=== PATIENT | female | born 1980 ===

== ENCOUNTER 2016-09-11 15:18 | Emergency (ER) | payer OTHER ==
[~2016-09-11] VITALS: Ht 162.6 cm; Wt 68.0 kg
[~2016-09-11 15:18] MED LIST: CETIRIZINE HCL10 M2 PO; HYDROXYZINE HCL25 M2 PO; IBUPROFEN800 M1 PO; MEDROL4 M2 PO; PREDNISONE5 M1 PO; TRIAMCINOLONE A15 G3 TOP; VISTARIL50 M1 PO
--- NOTE | 2016-09-11 16:38 | ED SKIN/ALLERGY COMPLAINT ---
History of Present Illness General Chief Complaint: Allergy Symptoms Stated Complaint: ?ALLERGIC RXN, EYES SWOLLEN,RASH X 1WK SAW MD Source: patient, family, old records Exam Limitations: no limitations Vital Signs & Intake/Output Vital Signs & Intake/Output Vital Signs Date Time Temp Pulse Resp B/P Pulse O2 O2 Flow FiO2 Ox Delivery Rate 09/11 1738 58 16 103/59 98 Room Air 09/11 1731 Room Air 09/11 1522 98.3 69 20 107/66 98 Room Air Allergies Coded Allergies: Fish Containing Products (PER PT MD 09/03/16) lemon (PER PT MD 09/03/16) milk (PER PT MD 09/03/16) orange (PER PT MD 09/03/16) peanut (PER PT MD 09/03/16) rice (PER PT MD 09/03/16) strawberry (PER PT MD 09/03/16) wheat (PER PT MD 09/03/16) Reconcile Medications Cetirizine HCl 10 MG TABLET 1 TAB PO DAILY ALLERGIES (Reported) Hydroxyzine Pamoate (Vistaril) 50 MG CAPSULE 1 CAP PO TID PRN itching Triage Note: PT TO ED C/O RASH TO FACE AND HANDS X 3 MONTHS. PT WAS SEEN IN ED ON 09/03 AND GIVEN RX'S. PT STATES THE RASH IT GETTING WORSE. NO SOB OR DIFF BREATHING NOTED. DENIES NEW SOAP, DETERGENT, LOTION. STATES THE RASH IS ITCHY. Triage Nurses Notes Reviewed? yes Onset: Gradual Duration: getting worse Severity: severe Severity Numbers: 7 Location: face, extremities : Yes Patient currently breastfeeds: No HPI: Patient is a 36-year-old female who presents to emergency room with concerns of a rash to her face and hands. Patient states in the last 2 monthS she's had a persistent erythematous warm swollen rash around her eyes and nose Patient states that she's been having INTERMITTENT symptoms of generalized weakness and fatigue and body aches since symptoms began in which she also states that the rash is pruritic in nature Patient was initially evaluated by primary care doctor about a 2 MONTHS AGO and received blood work with unremarkable findings patient was given prescriptions of antihistamine steroids and Keflex with temporary resolution of her rash.. Patient THEN did present to [facility] emergency room approximately 10 days ago for similar recurring complaints in which patient was treated for contact dermatitis with antihistamines and anti-inflammatories. Patient does state AGAIN that she had relief of her symptoms however 1 medications ran out her symptoms returned. Currently denies any fever chills cough shortness of breath chest pain sore throat nausea vomiting or paresthesia. (GANESH RAMIREZ) Past History Travel History Traveled to [place] past 21 day No Medical History Any Pertinent Medical History? 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 No (GANESH RAMIREZ) Review of Systems Review of Systems Constitutional: Reports: see HPI, malaise, weakness. EENTM: Reports: no symptoms. Respiratory: Reports: no symptoms. Cardiovascular: Reports: no symptoms. GI: Reports: no symptoms. Genitourinary: Reports: no symptoms. Musculoskeletal: Reports: see HPI. Skin: Reports: see HPI, erythema, rash. Neurological/Psychological: Reports: no symptoms. Hematologic/Endocrine: Reports: no symptoms. Immunologic/Allergic: Reports: no symptoms. All Other Systems: Reviewed and Negative (GANESH RAMIREZ) Physical Exam Physical Exam General Appearance: no apparent distress, alert Skin: intact Comments: Well-developed well-nourished person in no acute distress HEENT: Normal EENT exam, extraocular motion intact, no nystagmus. Pupils equally round and reactive to light and accommodation. Nose is atraumatic. External auditory canal and Tympanic membranes clear. Pharynx normal. No swelling or edema. Neck: Supple, no lymphadenopathy, normal range of motion without pain or tenderness Back: Nontender, no CVA tenderness. Cardiovascular: Regular rate and rhythms no murmurs rubs or gallops, normal JVP Respiratory: Chest nontender. No respiratory distress.breath sounds clear to auscultation bilaterally Abdomen: Soft, nontender nondistended, no appreciable organomegaly. Normal bowel sounds. No ascites Extremity: No edema, no calf tenderness to palpation, normal and equal pulses. Neuro: Alert oriented x3, motor sensory normal, cranial nerves II through XII grossly intact. Psych: Mood and affect is normal, memory and judgment is normal. Diagram Head: 1) Erythematous warm rash noted Hands, Dorsum: 1) Scattered erythematous macular-papular rash noted 2) Scattered erythematous macular-papular rash noted (GANESH RAMIREZ) Progress Differential Diagnosis: abscess/cellulitis, allergic reaction, anaphylaxis, angioedema, asthma, contact dermatitis, drug reaction, erythema multiforme, lyme disease, meningitis/sepsis, piyriasis rosea, RMSF, scarlet fever, shingles, syphilis/gonococcemia, toxic shock syndrome, urticaria, LUPUS, CYST DISEASE, CELLULITIS, PERIORBITAL CELLULITIS, ORBITAL CELLULITIS Plan of Care: Orders Procedure Date/time Status ANTINUCLEAR ANTIBODY 09/11 1658 Active URINE 09/11 1657 Complete URINALYSIS 09/11 1657 Complete WESTERGREN SED RATE 09/11 1657 Complete C-REACTIVE PROTEIN 09/11 1657 Complete COMPREHENSIVE METABOLIC PANEL 09/11 1657 Complete CREATINE PHOSPHOKINASE 09/11 1657 Complete CBC WITHOUT DIFFERENTIAL 09/11 1657 Complete Laboratory Tests 09/11/16 1721: Anion Gap 13, Estimated GFR > 60, BUN/Creatinine Ratio 11.4, Glucose 81, Calcium 9.2, Total Bilirubin 0.5, AST 27, ALT 39, Alkaline Phosphatase 65, Creatine Kinase 167 H, C-Reactive Prot, Quant < 0.5, Total Protein 7.6, Albumin 4.3, Globulin 3.3, Albumin/Globulin Ratio 1.3, CBC w Diff NO MAN DIFF REQ, RBC 5.23, MCV 79.1 L, MCH 25.2 L, RDW 14.5, MPV 8.2, Gran % 43.9, Lymphocytes % 43.1, Monocytes % 4.8, Eosinophils % 7.7 H, Basophils % 0.5, Absolute Granulocytes 3.3, Absolute Lymphocytes 3.2, Absolute Monocytes 0.4, Absolute Eosinophils 0.6, Absolute Basophils 0, PUBS MCHC 31.9 L, ESR Westergren 10, WALLACE Titer Pending, Anti-Nuclear Antibody Pending 09/11/16 1715: Urine Color STRAW, Urine Clarity CLEAR, Urine pH 7.0, Ur Specific [place] 1.010, Urine Protein NEG, Urine Ketones NEG, Urine Nitrite NEG, Urine Bilirubin NEG, Urine Urobilinogen 0.2, Ur Leukocyte Esterase NEG, Ur Microscopic EXAM NOT REQUIRED, Urine Hemoglobin NEG, Urine Glucose NEG, Urine Test NEGATIVE Microbiology 09/11 1707 BLOOD: Blood Culture - CAN Cancelled: Cancelled via OE: NOT NEEDED 09/11 1707 BLOOD: Blood Culture - CAN Cancelled: Cancelled via OE: NOT NEEDED At this time due to history of present illness and exam findings there was initial concerns of contact dermatitis however there was concerned of lupus like rash however initially all but work was unremarkable however WALLACE still pending. I discussed with patient of concerns of rash in which I advised patient to discontinue any use of contact substances to her hand and her face to see if this improves her symptoms. Patient has stated that anti-inflammatories and antihistamines have improved her symptoms Mayonr Cummings, DO also evaluated patient and agrees that he has concerns of contact dermatitis. Patient will be given antihistamine and anti-inflammatory medications and was strongly advised to follow up with primary care doctor and have her receive referral for calender roll operator if symptoms persist. Upon discharge patient looks well there are no concerns of periorbital or orbital cellulitis or infectious process at this time. Patient was strongly advised to return if symptoms worsen and she will comply Blood work was printed out for patients FROM emergency room (GANESH RAMIREZ) Departure Departure Disposition: HOME OR SELF CARE Condition: Stable Clinical Impression Primary Impression: Contact dermatitis Referrals: PATIENT HAS NO PRIMARY CARE DR (PCP/Family) Additional Instructions: As discussed begin the prescription of prednisone tomorrow as you receive this medication in the emergency room today. Begin the prescription of Vistaril and Pepcid for your itching complaints. Begin the prescription hydrocortisone cream and it applied to affected areas. Prescriptions are waiting at [facility] pharmacy. If no better in 2 days follow-up with your primary care doctor for a referral for calender roll operator. If symptoms worsen or if you develop a concerning symptom return to emergency room immediately. Please present the blood work copies provided to the emergency room for follow-up with your doctor Please discontinue the use of the soap that you have been using to see if this improves her symptoms Departure Forms: Customer Survey General Discharge Information (GANESH RAMIREZ) PA/HUMANE OFFICER Co-Sign Statement Statement: ED Attending supervision documentation- [x] I saw and evaluated the patient. I have also reviewed all the pertinent lab results and diagnostic results. I agree with the findings and the plan of care as documented in the PA's/HUMANE OFFICER's documentation. [] I have reviewed the ED Record and agree with the PA's/HUMANE OFFICER's documentation. [] Additions or exceptions (if any) to the PAs/HUMANE OFFICER's note and plan are summarized below: [] (MAYNOR CUMMINGS DO)
[2016-09-11 17:33] LABS: ABSOLUTE BASOPHIL COUNT 0 /CUMM (0.0-0.2); ABSOLUTE EOSINOPHIL COUNT 0.6 /CUMM (0.0-0.7); ABSOLUTE GRANULOCYTE CT 3.3 /CUMM (1.4-6.5); ABSOLUTE LYMPH COUNT 3.2 /CUMM (1.2-3.4); ABSOLUTE MONOCYTE COUNT 0.4 /CUMM (0.10-0.60); BASOPHIL % 0.5 % (0.0-2.0); EOSINOPHIL % 7.7 % (0-5); GRANULOCYTE % 43.9 % (42.2-75.2); HEMATOCRIT 41.3 % (37-47); MEAN CORPUSCULAR HGB 25.2 PG (27.0-31.0); MEAN CORPUSCULAR HGB CONC 31.9 G/DL (33.0-37.0); MEAN CORPUSCULAR VOLUME 79.1 FL (81.0-99.0); MEAN PLATELET VOLUME 8.2 FL (7.4-10.4); PLATELET COUNT 274 /CUMM (130-400); RBC DISTRIBUTION WIDTH 14.5 % (11.5-14.5); RED BLOOD CELL CT 5.23 /CUMM (4.20-5.40); WHITE BLOOD CELL COUNT 7.5 /CUMM (4.8-10.8)
[2016-09-11 17:38] VITALS: BP 103/59
== END 2016-09-11 18:40 ==
LOC: ERH 15:18
PROVIDERS: Physician Assistant
DX: L25.9 Unspecified contact dermatitis, unspecified cause (principal)
CPT/HCPCS: 81003; 81025; 87040